=== PATIENT | male | born 1940 | race Caucasian/White ===

== ENCOUNTER → 2019-01-08 | Outpatient (CLI) | payer OTHER ==
[2019-01-08 17:35] LABS: ALT/SGPT 37 U/L (12-78); BILIRUBIN,TOTAL 0.6 MG/DL (0.2-1.0); BLOOD UREA NITROGEN 20 MG/DL (7-18); CARBON DIOXIDE LEVEL 28 MEQ/L (21-32); CHLORIDE LEVEL 108 MEQ/L (98-107); CREATININE FOR GFR 1.14 MG/DL (0.70-1.30); GLOMERULAR FILTRATION RATE > 60.0 (>42); GLUCOSE, FASTING 113 MG/DL (70-100); POTASSIUM SERUM 4.6 MEQ/L (3.5-5.1); SODIUM LEVEL 142 MEQ/L (136-145); TOTAL PROTEIN 7.3 GM/DL (6.4-8.2)
[2019-01-08 17:36] LABS: BASO # 0.1 10^3/uL (0.0-0.2); BASO % 0.8 % (0.0-1.0); EOS # 0.1 10^3/uL (0.0-0.50); EOS % 1.7 % (0.0-3.0); HEMATOCRIT 46.6 % (42.0-52.0); HEMOGLOBIN 15.4 g/dl (13.5-17.5); LYMPH # 1.5 10^3/uL (1.5-4.5); LYMPH % 23.3 % (24.0-44.0); MONO # 0.6 10^3/uL (0.0-0.8); MONO % 8.5 % (0.0-5.0); NEUTROPHILS # 4.3 10^3/uL (1.8-7.7); NEUTROPHILS % 65.2 % (36.0-66.0); PLATELET COUNT, AUTOMATED 156 10^3/uL (150-450); RED BLOOD COUNT 4.96 10^6/uL (4.30-6.10); WHITE BLOOD COUNT 6.6 10^3/uL (4.0-10.0)
[2019-01-12 14:24] LABS: Lyme Disease IgG Ab 18 kDa Ban Present (.); Lyme Disease IgG Ab 23 kDa Ban Present (.); Lyme Disease IgG Ab 28 kDa Ban Absent (.); Lyme Disease IgG Ab 30 kDa Ban Absent (.); Lyme Disease IgG Ab 39 kDa Ban Present (.); Lyme Disease IgG Ab 41 kDa Ban Present (.); Lyme Disease IgG Ab 45 kDa Ban Absent (.); Lyme Disease IgG Ab 58 kDa Ban Present (.); Lyme Disease IgG Ab 66 kDa Ban Present (.); Lyme Disease IgG Ab 93 kDa Ban Absent (.); Lyme Disease IgG West Blot Int Positive (.); Lyme Disease IgM Ab 23 kDa Ban Present (.); Lyme Disease IgM Ab 39 kDa Ban Present (.); Lyme Disease IgM Ab 41 kDa Ban Absent (.); Lyme Disease IgM Ab Quantitati 1.12 index (0.00-0.79); Lyme Disease IgM West Blot Int Positive (.)
== END ==
LOC: M WUC 14:25
PROVIDERS: ATTEND Physician Assistant
DX: A69.20 Lyme disease, unspecified (principal)

== ENCOUNTER → 2023-02-06 | Outpatient (CLI) | payer OTHER | LOC: M SOG 14:14 | PROVIDERS: ATTEND Orthopaedic Surgery | DX: M54.50 Low back pain, unspecified (principal); M18.12 Unilateral primary osteoarthritis of first carpometacarpal joint, left hand ==

== ENCOUNTER → 2023-02-06 | Outpatient (CLI) | payer OTHER | LOC: M WUC 10:21 | PROVIDERS: ATTEND Student in an Organized Health Care Education/Training Program | DX: S52.252A Displaced comminuted fracture of shaft of ulna, left arm, initial encounter for closed fracture (principal); S50.12XA Contusion of left forearm, initial encounter; Y93.9 Activity, unspecified; Y92.9 Unspecified place or not applicable ==

== ENCOUNTER → 2023-02-14 | Outpatient (CLI) | payer OTHER | LOC: M SOG 10:10 | PROVIDERS: ATTEND Orthopaedic Surgery | DX: S52.602A Unspecified fracture of lower end of left ulna, initial encounter for closed fracture (principal); Y93.9 Activity, unspecified; Y92.9 Unspecified place or not applicable ==

== ENCOUNTER → 2023-02-21 | Outpatient (CLI) | payer OTHER | LOC: M SOG 07:53 | PROVIDERS: ATTEND Orthopaedic Surgery | DX: S52.602A Unspecified fracture of lower end of left ulna, initial encounter for closed fracture (principal) ==

== ENCOUNTER → 2023-03-07 | Outpatient (CLI) | payer OTHER | LOC: M SOG 07:54 | PROVIDERS: ATTEND Orthopaedic Surgery | DX: S52.602D Unspecified fracture of lower end of left ulna, subsequent encounter for closed fracture with routine healing (principal) ==

== ENCOUNTER → 2023-03-21 | Outpatient (CLI) | payer OTHER | LOC: M SOG 15:48 | PROVIDERS: ATTEND Orthopaedic Surgery | DX: S52.602D Unspecified fracture of lower end of left ulna, subsequent encounter for closed fracture with routine healing (principal); M19.032 Primary osteoarthritis, left wrist ==

== ENCOUNTER 2023-12-19 15:40 | Inpatient (IN) | payer OTHER ==
[~2023-12-19] VITALS: Ht 177.8 cm; Wt 71.3 kg
[~2023-12-19 15:40] MED LIST: BACTDSTA PO
[2023-12-19] MEDS ORDERED: ERYT5OIN25 OS (16:18)
[2023-12-19] MEDS ORDERED: LISI20TA33 PO (16:18)
[2023-12-19] MEDS ORDERED: SIMV20TA22 PO (16:18)
[2023-12-19] MEDS ORDERED: CEFU50TA PO (16:18)
[2023-12-19] MEDS ORDERED: FAMO20TA PO (16:18)
[2023-12-19] MEDS ORDERED: PRED20TA PO (16:18)
[2023-12-19 18:26] LABS: CK-MB VALUE MASS < 1.0 NG/ML (<3.6)
[2023-12-19 18:29] LABS: ALKALINE PHOSPHATASE 95 U/L (46-116); ALT/SGPT 39 U/L (7.0-40); AST/SGOT 18 U/L (<34); BILIRUBIN,DIRECT 0.1 MG/DL (<0.4); BILIRUBIN,TOTAL 0.6 MG/DL (0.3-1.2); BLOOD UREA NITROGEN 39 MG/DL (9-23); CARBON DIOXIDE LEVEL 23 MMOL/L (20-31); CHLORIDE LEVEL 92 MMOL/L (98-107); CREATININE FOR GFR 1.08 MG/DL (0.70-1.30); GLOMERULAR FILTRATION RATE > 60.0 (>35); GLUCOSE, FASTING 188 MG/DL (74-106); POTASSIUM SERUM 4.4 MMOL/L (3.5-5.1); SODIUM LEVEL 123 MMOL/L (136-145); TOTAL PROTEIN 6.3 G/DL (5.7-8.2)
[2023-12-19 18:31] LABS: THYROID STIMULATING HORMONE 3.445 uIU/ML (0.55-4.78)
[2023-12-19 18:36] LABS: CPK CREATINE PHOSPHOKINASE 39 U/L (46-171); HEMATOCRIT 33.9 % (42.0-52.0); HEMOGLOBIN 11.7 g/dl (13.5-17.5); MB/CK RELATIVE INDEX 2.56 (< OR =4); MEAN CORPUSCULAR HGB CONC 34.5 g/dl (32.0-36.5); MEAN CORPUSCULAR VOLUME 89.9 fl (80.0-96.0); PLATELET COUNT, AUTOMATED 182 10^3/uL (150-450); RED BLOOD COUNT 3.77 10^6/uL (4.30-6.10)
[2023-12-19 19:02] LABS: LYMPHOCYTES 6 % (16-44); METAMYELOCYTES 3 % (0-0); MONOCYTES 5 % (0-5); MYELOCYTES 2 % (0-0); NEUTROPHILS 84 % (28-66); PLATELET ESTIMATE NORMAL (NORMAL)
[2023-12-19] MEDS: NS 1,000 ML IV ONE (19:35)
[2023-12-19] MEDS ORDERED: ISOVUE-370 76% 100ML VIAL As Ordered ONE (19:40)
[2023-12-19 20:23] LABS: PROCALCITONIN 0.09 ng/ml
[2023-12-19] MEDS: PIPERACILLIN/TAZOBACTAM SOD 4.5 GM in D5W MINI-BAG PLUS 50 ML IV ONE (22:15)
[2023-12-19] MEDS ORDERED: MED REC IN PROGRESS XX SCH (22:35)
[2023-12-19] MEDS ORDERED: HOME MED LIST COMPLETE! XX SCH (23:35)
[2023-12-20] VITALS (7 sets, daily range): BP systolic 107–135; BP diastolic 58–73; TEMP 97.3–98.1; O2SAT 95–100
[2023-12-20] MEDS: NS 1,000 ML IV SCH (01:21)
[2023-12-20] MEDS: SIMVASTATIN 20 MG TAB PO SCH (01:31)
[2023-12-20 02:43] LABS: BLOOD UREA NITROGEN 33 MG/DL (9-23); CALCIUM LEVEL 8.8 MG/DL (8.3-10.6); CARBON DIOXIDE LEVEL 22 MMOL/L (20-31); CHLORIDE LEVEL 99 MMOL/L (98-107); CREATININE FOR GFR 1.01 MG/DL (0.70-1.30); GLOMERULAR FILTRATION RATE > 60.0 (>35); GLUCOSE, FASTING 160 MG/DL (74-106); POTASSIUM SERUM 4.6 MMOL/L (3.5-5.1); SODIUM LEVEL 126 MMOL/L (136-145)
[2023-12-20 03:11] LABS: SODIUM,RANDOM URINE 50 MMOL/L
[2023-12-20 03:12] LABS: OSMOLALITY URINE 362 MOSM/KG (50-1400)
[2023-12-20] MEDS: PIPERACILLIN/TAZOBACTAM SOD 3.375 GM in D5W MINI-BAG PLUS 50 ML IV SCH (05:35)
[2023-12-20 06:00] LABS: HEMOGLOBIN 11.3 g/dl (13.5-17.5); MEAN CORPUSCULAR HEMOGLOBIN 30.8 pg (27.0-33.0); MEAN CORPUSCULAR HGB CONC 34.2 g/dl (32.0-36.5); MEAN CORPUSCULAR VOLUME 89.9 fl (80.0-96.0); PLATELET COUNT, AUTOMATED 148 10^3/uL (150-450); RED BLOOD COUNT 3.67 10^6/uL (4.30-6.10); WHITE BLOOD COUNT 6.2 10^3/uL (4.0-10.0)
[2023-12-20 06:39] LABS: BLOOD UREA NITROGEN 28 MG/DL (9-23); CALCIUM LEVEL 8.6 MG/DL (8.3-10.6); CARBON DIOXIDE LEVEL 21 MMOL/L (20-31); CHLORIDE LEVEL 99 MMOL/L (98-107); CREATININE FOR GFR 0.92 MG/DL (0.70-1.30); GLOMERULAR FILTRATION RATE > 60.0 (>35); GLUCOSE, FASTING 133 MG/DL (74-106); MAGNESIUM LEVEL 2.2 MG/DL (1.8-2.4); POTASSIUM SERUM 4.3 MMOL/L (3.5-5.1); SODIUM LEVEL 126 MMOL/L (136-145)
[2023-12-20] MEDS: ENOXAPARIN 40MG/0.4ML SYRINGE (J1650 PER 10MG) SC SCH (08:11)
[2023-12-20] MEDS: ERYTHROMYCIN OPHTH OINT OS SCH (08:11)
[2023-12-20 08:50] LABS: INR 1.07; PARTIAL THROMBOPLASTIN TIME 26.2 SECONDS (24.8-34.2); PROTHROMBIN TIME 13.6 SECONDS (12.5-14.5)
[2023-12-20] MEDS ORDERED: LISI10TA24 PO (09:29)
[2023-12-20] MEDS: VANCOMYCIN HCL 1,000 MG, VIAL MATE ADAPTER 1 EACH in D5W 250 ML IV ONE (10:40)
[2023-12-20] MEDS: MUPIROCIN 2% OINT 22 GM TUBE TOP SCH (10:40)
[2023-12-20] MEDS: VANCOMYCIN HCL 750 MG, VIAL MATE ADAPTER 1 EACH in D5W 250 ML IV SCH (20:45)
[2023-12-20] MEDS: BENZONATATE 100MG CAPSULE PO PRN (22:19)
[2023-12-21 04:24] VITALS: BP 141/73; TEMP 97.9; O2SAT 95
[2023-12-21 08:05] LABS: HEMOGLOBIN 10.4 g/dl (13.5-17.5); MEAN CORPUSCULAR HEMOGLOBIN 31.2 pg (27.0-33.0); MEAN CORPUSCULAR HGB CONC 34.7 g/dl (32.0-36.5); MEAN CORPUSCULAR VOLUME 90.1 fl (80.0-96.0); PLATELET COUNT, AUTOMATED 136 10^3/uL (150-450); RED BLOOD COUNT 3.33 10^6/uL (4.30-6.10); WHITE BLOOD COUNT 5.8 10^3/uL (4.0-10.0)
[2023-12-21 08:16] VITALS: BP 114/67; TEMP 97.7; O2SAT 99
[2023-12-21 08:49] LABS: ALBUMIN 2.8 G/DL (3.2-5.2); ALKALINE PHOSPHATASE 84 U/L (46-116); ALT/SGPT 35 U/L (7.0-40); AST/SGOT 19 U/L (<34); BILIRUBIN,TOTAL 0.8 MG/DL (0.3-1.2); BLOOD UREA NITROGEN 15 MG/DL (9-23); CALCIUM LEVEL 8.2 MG/DL (8.3-10.6); CARBON DIOXIDE LEVEL 22 MMOL/L (20-31); CHLORIDE LEVEL 101 MMOL/L (98-107); CREATININE FOR GFR 0.64 MG/DL (0.70-1.30); GLOMERULAR FILTRATION RATE > 60.0 (>35); GLUCOSE, FASTING 171 MG/DL (74-106); POTASSIUM SERUM 3.9 MMOL/L (3.5-5.1); SODIUM LEVEL 128 MMOL/L (136-145); TOTAL PROTEIN 5.5 G/DL (5.7-8.2)
[2023-12-21] MEDS: VANCOMYCIN HCL 500 MG in D5W MINI-BAG PLUS 100 ML IV ONE (10:23)
[2023-12-21 12:00] VITALS: BP 131/72; TEMP 97.5; O2SAT 99
[2023-12-21] MEDS: FAMOTIDINE 20 MG TAB PO SCH (17:06)
[2023-12-21 19:48] VITALS: BP 132/69; TEMP 98.1; O2SAT 98
[2023-12-21] MEDS: VANCOMYCIN HCL 1,000 MG, VIAL MATE ADAPTER 1 EACH in D5W 250 ML IV SCH (20:10)
[2023-12-22 00:09] VITALS: BP 124/72; TEMP 98.1; O2SAT 98
[2023-12-22 04:12] VITALS: BP 138/80; TEMP 97.5; O2SAT 98
[2023-12-22] MEDS: ACETAMINOPHEN TAB 650MG DOSE (2X325MG) PO PRN (06:13)
[2023-12-22 07:30] LABS: HEMATOCRIT 31.9 % (42.0-52.0); HEMOGLOBIN 10.5 g/dl (13.5-17.5); MEAN CORPUSCULAR HEMOGLOBIN 32.5 pg (27.0-33.0); MEAN CORPUSCULAR HGB CONC 32.9 g/dl (32.0-36.5); MEAN CORPUSCULAR VOLUME 98.8 fl (80.0-96.0); PLATELET COUNT, AUTOMATED 102 10^3/uL (150-450); RED BLOOD COUNT 3.23 10^6/uL (4.30-6.10); WHITE BLOOD COUNT 4.7 10^3/uL (4.0-10.0)
[2023-12-22 08:00] VITALS: BP 122/68; TEMP 97.5; O2SAT 98
[2023-12-22 08:03] LABS: ALBUMIN 2.5 G/DL (3.2-5.2); ALKALINE PHOSPHATASE 81 U/L (46-116); ALT/SGPT 31 U/L (7.0-40); AST/SGOT 19 U/L (<34); BILIRUBIN,TOTAL 0.6 MG/DL (0.3-1.2); BLOOD UREA NITROGEN 14 MG/DL (9-23); CALCIUM LEVEL 7.9 MG/DL (8.3-10.6); CARBON DIOXIDE LEVEL 23 MMOL/L (20-31); CHLORIDE LEVEL 104 MMOL/L (98-107); CREATININE FOR GFR 0.68 MG/DL (0.70-1.30); GLOMERULAR FILTRATION RATE > 60.0 (>35); GLUCOSE, FASTING 107 MG/DL (74-106); SODIUM LEVEL 132 MMOL/L (136-145); TOTAL PROTEIN 5.3 G/DL (5.7-8.2)
[2023-12-22 12:00] VITALS: BP 119/68; TEMP 97.7; O2SAT 95
[2023-12-22 17:37] VITALS: BP 127/69; TEMP 97.5; O2SAT 96
[2023-12-22] MEDS: PIPERACILLIN/TAZOBACTAM SOD 3.375 GM in D5W MINI-BAG PLUS 50 ML IV SCH (18:04)
[2023-12-22 19:28] VITALS: BP 154/63; TEMP 98.1; O2SAT 98
[2023-12-23] VITALS (14 sets, daily range): BP systolic 117–176; BP diastolic 68–108; TEMP 97.3–104.6; O2SAT 87–100
[2023-12-23 07:58] LABS: HEMATOCRIT 28.3 % (42.0-52.0); HEMOGLOBIN 9.8 g/dl (13.5-17.5); MEAN CORPUSCULAR HEMOGLOBIN 30.3 pg (27.0-33.0); MEAN CORPUSCULAR HGB CONC 34.6 g/dl (32.0-36.5); MEAN CORPUSCULAR VOLUME 87.6 fl (80.0-96.0); PLATELET COUNT, AUTOMATED 118 10^3/uL (150-450); RED BLOOD COUNT 3.23 10^6/uL (4.30-6.10); WHITE BLOOD COUNT 4.7 10^3/uL (4.0-10.0)
[2023-12-23 08:22] LABS: VANCOMYCIN LEVEL TROUGH 12.4 UG/ML (10.0-20.0)
[2023-12-23 08:25] LABS: ALBUMIN 2.3 G/DL (3.2-5.2); ALKALINE PHOSPHATASE 78 U/L (46-116); ALT/SGPT 26 U/L (7.0-40); AST/SGOT 15 U/L (<34); BILIRUBIN,TOTAL 0.7 MG/DL (0.3-1.2); BLOOD UREA NITROGEN 14 MG/DL (9-23); CALCIUM LEVEL 7.7 MG/DL (8.3-10.6); CARBON DIOXIDE LEVEL 24 MMOL/L (20-31); CHLORIDE LEVEL 98 MMOL/L (98-107); GLOMERULAR FILTRATION RATE > 60.0 (>35); GLUCOSE, FASTING 111 MG/DL (74-106); POTASSIUM SERUM 3.8 MMOL/L (3.5-5.1); SODIUM LEVEL 127 MMOL/L (136-145); TOTAL PROTEIN 4.9 G/DL (5.7-8.2)
[2023-12-23] MEDS ORDERED: fentaNYL 100 MCG/2 ML INJECTION As Ordered ONE (11:17)
[2023-12-23] MEDS ORDERED: SUCCINYLCHOLINE 100MG/5ML SYRINGE As Ordered ONE (11:17)
[2023-12-23] MEDS ORDERED: propofoL 200 MG/20 ML VIAL As Ordered ONE (11:17)
[2023-12-23] MEDS ORDERED: LIDOCAINE 2% 100MG/5ML SDV (FOR ANES.) As Ordered ONE (11:17)
[2023-12-23] MEDS: OXYMETAZOLINE 0.05% NASAL SPRAY (AFRIN) As Ordered ONE (12:27)
[2023-12-23] MEDS: THROMBIN 5,000 UNITS VIAL As Ordered ONE (12:27)
[2023-12-23] MEDS ORDERED: GLYCOPYRROLATE INJ 0.2 MG/ML 2 ML VIAL As Ordered ONE (12:35)
[2023-12-23] MEDS ORDERED: ONDANSETRON 4MG 2ML VIAL As Ordered ONE (12:47)
[2023-12-23] MEDS: SODIUM CHLORIDE NASAL 0.65% SPRAY BTL (OCEAN) SCH (17:00)
[2023-12-23 18:23] LABS: ABG HCO3 21.1 MMOL/L (22.0-26.0); ABG PARTIAL PRESSURE CO2 27.6 mmHg (35.0-45.0); ABG PARTIAL PRESSURE O2 89.7 mmHg (75.0-100.0); ABG STANDARD HCO3 23.6 MMOL/L. (22.0-26.0); ABG pH (ARTERIAL) 7.502 UNITS (7.350-7.450)
[2023-12-23] MEDS: SODIUM CHLORIDE 0.9% 1000ML IV ONE (18:34)
[2023-12-23 18:37] LABS: BASO % 0.3 % (0.0-1.0); EOS % 0.3 % (0.0-3.0); HEMOGLOBIN 11.2 g/dl (13.5-17.5); LYMPH # 0.5 10^3/uL (1.5-5.0); LYMPH % 5.9 % (24.0-44.0); MEAN CORPUSCULAR HEMOGLOBIN 30.9 pg (27.0-33.0); MEAN CORPUSCULAR VOLUME 88.4 fl (80.0-96.0); MONO # 0.3 10^3/uL (0.0-0.8); MONO % 3.6 % (2.0-8.0); NEUTROPHILS # 7.7 10^3/uL (1.5-8.5); NEUTROPHILS % 88.9 % (36.0-66.0); PLATELET COUNT, AUTOMATED 134 10^3/uL (150-450); RED BLOOD COUNT 3.62 10^6/uL (4.30-6.10); WHITE BLOOD COUNT 8.7 10^3/uL (4.0-10.0)
[2023-12-23] MEDS: IBUPROFEN 800 MG TAB PO ONE (18:53)
[2023-12-24] VITALS (14 sets, daily range): BP systolic 95–155; BP diastolic 55–78; TEMP 96.9–99.7; O2SAT 93–100
[2023-12-24 08:23] LABS: VANCOMYCIN LEVEL TROUGH 13.6 UG/ML (10.0-20.0)
[2023-12-24 08:24] LABS: BLOOD UREA NITROGEN 18 MG/DL (9-23); CALCIUM LEVEL 8.1 MG/DL (8.3-10.6); CARBON DIOXIDE LEVEL 26 MMOL/L (20-31); CHLORIDE LEVEL 97 MMOL/L (98-107); GLOMERULAR FILTRATION RATE > 60.0 (>35); GLUCOSE, FASTING 171 MG/DL (74-106); POTASSIUM SERUM 3.5 MMOL/L (3.5-5.1); SODIUM LEVEL 128 MMOL/L (136-145)
[2023-12-24 08:27] LABS: BASO % 0.2 % (0.0-1.0); EOS # 0.1 10^3/uL (0.0-0.5); EOS % 0.5 % (0.0-3.0); HEMATOCRIT 28.1 % (42.0-52.0); HEMOGLOBIN 9.9 g/dl (13.5-17.5); LYMPH # 0.5 10^3/uL (1.5-5.0); LYMPH % 3.9 % (24.0-44.0); MEAN CORPUSCULAR HEMOGLOBIN 31.5 pg (27.0-33.0); MEAN CORPUSCULAR HGB CONC 35.2 g/dl (32.0-36.5); MEAN CORPUSCULAR VOLUME 89.5 fl (80.0-96.0); MONO # 0.3 10^3/uL (0.0-0.8); MONO % 2.5 % (2.0-8.0); NEUTROPHILS # 11.7 10^3/uL (1.5-8.5); NEUTROPHILS % 92.3 % (36.0-66.0); PLATELET COUNT, AUTOMATED 106 10^3/uL (150-450); RED BLOOD COUNT 3.14 10^6/uL (4.30-6.10); WHITE BLOOD COUNT 12.6 10^3/uL (4.0-10.0)
[2023-12-24 21:28] LABS: LYME AB IGG BY CIA 6.73 Index (<=0.90); LYME AB IGM BY CIA <= 0.90 Index (<=0.90)
[2023-12-25 04:08] VITALS: BP 119/73; TEMP 98.7; O2SAT 95
[2023-12-25 05:42] LABS: BASO % 0.1 % (0.0-1.0); EOS # 0.1 10^3/uL (0.0-0.5); EOS % 1.6 % (0.0-3.0); HEMATOCRIT 24.2 % (42.0-52.0); HEMOGLOBIN 8.5 g/dl (13.5-17.5); LYMPH # 0.5 10^3/uL (1.5-5.0); MEAN CORPUSCULAR HEMOGLOBIN 31.4 pg (27.0-33.0); MEAN CORPUSCULAR HGB CONC 35.1 g/dl (32.0-36.5); MEAN CORPUSCULAR VOLUME 89.3 fl (80.0-96.0); MONO # 0.3 10^3/uL (0.0-0.8); MONO % 3.6 % (2.0-8.0); NEUTROPHILS # 7.4 10^3/uL (1.5-8.5); PLATELET COUNT, AUTOMATED 107 10^3/uL (150-450); RED BLOOD COUNT 2.71 10^6/uL (4.30-6.10); WHITE BLOOD COUNT 8.4 10^3/uL (4.0-10.0)
[2023-12-25 06:05] LABS: BLOOD UREA NITROGEN 19 MG/DL (9-23); CALCIUM LEVEL 7.8 MG/DL (8.3-10.6); CARBON DIOXIDE LEVEL 26 MMOL/L (20-31); CHLORIDE LEVEL 100 MMOL/L (98-107); CREATININE FOR GFR 0.77 MG/DL (0.70-1.30); GLOMERULAR FILTRATION RATE > 60.0 (>35); GLUCOSE, FASTING 112 MG/DL (74-106); POTASSIUM SERUM 3.4 MMOL/L (3.5-5.1); SODIUM LEVEL 131 MMOL/L (136-145)
[2023-12-25 07:22] VITALS: BP 120/67; TEMP 97.1; O2SAT 98
[2023-12-25] MEDS: POTASSIUM CHLORIDE 10MEQ SR TABLET PO ONE (08:52)
[2023-12-25 12:00] VITALS: BP 118/67; TEMP 98.4; O2SAT 100
[2023-12-25 19:03] VITALS: BP 143/71; TEMP 98.1; O2SAT 93
[2023-12-25 23:57] VITALS: BP 125/64; TEMP 98.4; O2SAT 94
[2023-12-26 04:00] VITALS: BP 134/74; TEMP 97.8; O2SAT 94
[2023-12-26 07:05] LABS: HEMATOCRIT 23.9 % (42.0-52.0); HEMOGLOBIN 8.3 g/dl (13.5-17.5); MEAN CORPUSCULAR HGB CONC 34.7 g/dl (32.0-36.5); MEAN CORPUSCULAR VOLUME 89.2 fl (80.0-96.0); PLATELET COUNT, AUTOMATED 117 10^3/uL (150-450); RED BLOOD COUNT 2.68 10^6/uL (4.30-6.10); WHITE BLOOD COUNT 3.9 10^3/uL (4.0-10.0)
[2023-12-26 07:33] LABS: BLOOD UREA NITROGEN 10 MG/DL (9-23); CALCIUM LEVEL 7.6 MG/DL (8.3-10.6); CARBON DIOXIDE LEVEL 28 MMOL/L (20-31); CHLORIDE LEVEL 98 MMOL/L (98-107); CREATININE FOR GFR 0.76 MG/DL (0.70-1.30); GLOMERULAR FILTRATION RATE > 60.0 (>35); GLUCOSE, FASTING 118 MG/DL (74-106); POTASSIUM SERUM 3.4 MMOL/L (3.5-5.1); SODIUM LEVEL 129 MMOL/L (136-145)
[2023-12-26 07:42] LABS: ANISOCYTOSIS 1+; ATYPICAL LYMPH 2 % (0-5); BASOPHILS 2 % (0-1); EOSINOPHILS 2 % (0-3); LYMPHOCYTES 5 % (16-44); MONOCYTES 5 % (0-5); NEUTROPHILS 84 % (28-66)
[2023-12-26 07:43] LABS: HYPOCHROMASIA 1+
[2023-12-26 07:44] LABS: PLATELET ESTIMATE DECREASED (NORMAL)
[2023-12-26 07:48] VITALS: BP 134/71; TEMP 97.5; O2SAT 95
[2023-12-26] MEDS ORDERED: OXYMETAZOLINE 0.05% NASAL SPRAY (AFRIN) PRN (08:40)
[2023-12-26 10:15] VITALS: BP 124/66; TEMP 97.5; O2SAT 95
[2023-12-26 12:00] VITALS: BP 122/66; TEMP 97.9; O2SAT 98
[2023-12-26] MEDS ORDERED: OXYM05SP (14:43)
[2023-12-26] MEDS ORDERED: BENA2CRE2 TOP (14:43)
[2023-12-26] MEDS ORDERED: Sodium Chloride Nasal Spray (14:43)
[2023-12-26] MEDS ORDERED: AYR0.65S NARES (14:49)
[2023-12-26] MEDS ORDERED: CEFA500C2 PO (14:51)
[2023-12-26] MEDS: POTASSIUM CHLORIDE 10MEQ SR TABLET PO ONE (15:32)
[2023-12-26 16:00] VITALS: BP 113/64; TEMP 97.9; O2SAT 99
[2023-12-26] MEDS ORDERED: CEFA1TAB PO (16:19)
[2023-12-26] MEDS ORDERED: PROBCAP14 PO (16:19)
== END 2023-12-26 19:00 | disposition home or self-care (01) | DRG 710 ==
LOC: M ED 15:40 → M ED INP 23:26 → M MS5PR 12-20 00:54 → M PCU 12-23 18:25 → M MSPAV 12-26 10:09
PROVIDERS: ADMIT Preventive Medicine Undersea and Hyperbaric Medicine; ATTEND Internal Medicine Nephrology
PROC: 09JY4ZZ Inspection of Sinus, Percutaneous Endoscopic Approach (ICD-10-PCS; principal; 2023-12-22)
PROC: 09CR8ZZ Extirpation of Matter from Left Maxillary Sinus, Via Natural or Artificial Opening Endoscopic (ICD-10-PCS; 2023-12-23)
PROC: 09DV4ZZ Extraction of Left Ethmoid Sinus, Percutaneous Endoscopic Approach (ICD-10-PCS; 2023-12-23)
PROC: 09CT8ZZ Extirpation of Matter from Left Frontal Sinus, Via Natural or Artificial Opening Endoscopic (ICD-10-PCS; 2023-12-23)
DX: A41.9 Sepsis, unspecified organism (principal); G93.41 Metabolic encephalopathy; E87.1 Hypo-osmolality and hyponatremia; E87.6 Hypokalemia; I10 Essential (primary) hypertension; C61 Malignant neoplasm of prostate; Z92.3 Personal history of irradiation; Z92.21 Personal history of antineoplastic chemotherapy; L03.211 Cellulitis of face; J32.0 Chronic maxillary sinusitis; Z85.810 Personal history of malignant neoplasm of tongue; E78.5 Hyperlipidemia, unspecified; J32.2 Chronic ethmoidal sinusitis; J32.1 Chronic frontal sinusitis; Z79.899 Other long term (current) drug therapy; Z87.891 Personal history of nicotine dependence; R21 Rash and other nonspecific skin eruption; B95.61 Methicillin susceptible Staphylococcus aureus infection as the cause of diseases classified elsewhere